=== PATIENT | male | born 1935 | race Caucasian/White ===

== ENCOUNTER 2017-05-14 01:25 | Inpatient (IN) | payer OTHER, MEDICAID ==
[~2017-05-14] VITALS: Ht 170.2 cm; Wt 64.0 kg
[~2017-05-14 01:25] MED LIST: ASPIRIN81 MG PO; METOPROLOL SUCC25 M1 PO; SIMVASTATIN20 M1 PO
--- NOTE | 2017-05-14 01:33 | NUR ---
EKG IN PROGRESS
--- NOTE | 2017-05-14 01:50 | NUR ---
PT IN THE ED WITH CO LEFT SIDED CP INTERMITTENT SINCE 1800 EXACERBATED BY WALKING. THE PAIN RADIATES TO THE BACK. PT SHIRT AND JACKET REMOVED, GOWN DONNED. DR LOLITA MENDES FOR MSE. PT ON FULL MONITORS. PT RATES PAIN 10.
[2017-05-14 02:18] LABS: PLATELET COUNT 185 x10^3mcL (130-400); RED CELL DISTRIBUTION WIDTH 13.2 % (11.5-14.5)
[2017-05-14 02:22] LABS: CALCIUM 8.5 mg/dL (8.5-10.1); CARBON DIOXIDE 29.3 mmol/L (21-32); CHLORIDE SERUM 103 mmol/L (98-107); GLUCOSE SERUM 102 mg/dL (74-106); POTASSIUM SERUM 4.1 mmol/L (3.5-5.1); SODIUM SERUM 139 mmol/L (136-145)
--- NOTE | 2017-05-14 02:22 | NUR ---
X-RAY AT BEDSIDE
[2017-05-14 02:29] LABS: ALBUMIN 3.4 g/dL (3.4-5.0); ALKALINE PHOSPHATASE 78 U/L (46-116); ALT/SGPT 20 U/L (16-63); AST/SGOT 18 U/L (15-37); BILIRUBIN TOTAL 0.44 mg/dL (0.20-1.00); TOTAL PROTEIN, SERUM 7.3 g/dL (6.4-8.2)
[2017-05-14 02:32] LABS: BASOPHIL % 0 % (0-2)
--- NOTE | 2017-05-14 02:40 | NUR ---
PT WEIGHED AND ACTUAL WEIGHT IS [address] LOLITA STEVENS.
[2017-05-14] MEDS ORDERED: CARVEDILOL3.125 M1 PO (03:56)
--- NOTE | 2017-05-14 03:57 | NUR ---
PT RESTING, AAOX4 SPEAKING IN CLEAR SENTENCES. PT REPORTS EXPERIENCING PAIN ONLY WHEN COUGHING. BREATHING EVEN AND UNLABORED. PT IN NO ACUTE DISTRESS. RESIDENT AT BEDSIDE
--- NOTE | 2017-05-14 04:07 | NUR ---
REPORT CALLED TO JOELLE LIMA, TO ASSUME CARE POST TRANSFER
--- NOTE | 2017-05-14 04:50 | NUR ---
RECEIVED PT FROM ER, PT ADMIT FOR CHEST PAIN, PT IS A/O X4, VERBAL RESPONSIVE, ABLE TO TELL WHAT HE NEEDS. LUNG SOUND CLEAR BILATERAL, PT IS ON 2L/MIN O2 VIA NC. DENY ANY RESPIRATORY DISTRESS, PT IS ON TELE 28, NSR, DENY ANY CHEST PAIN OR DISCOMFORT, BOWEL SOUND PRESENT ALL 4 QUADRATNS, NO DISTENTION, NO TENDER. PEDAL PULSE PRESENT BOTH FEET, NO EDEMA NOTED, IV AT LEFT FA, NO LEAKING, NO INFILTRATION. PT STATE HAS HX STROKE, BUT THERE IS NO RESIDUAL NOTED. BUT PT UNABLE TO OPEN BOTH HAND LAST 2 FINGER, PT START HEPARIN DRIP AT ER, 800 UNIT/HR, NEXT PTT AT 0945, ALL ADLS ASSIST, ALL NEED MET, CALL LIGHT IN REACH, WILL CONTINUE TO MONITOR.
[2017-05-14 04:53] LABS: CHOLESTEROL/HDL RATIO 3.9; MAGNESIUM 1.9 mg/dL (1.8-2.4); PHOSPHOROUS 2.8 mg/dL (2.5-4.9)
[2017-05-14 04:54] LABS: T3 TOTAL 0.87 ng/mL
[2017-05-14 04:59] LABS: FREE T4 0.95 ng/dL (0.76-1.46); FREE THYROXINE INDEX 2.1 ug/dL (1.4-4.5); T4(THYROXINE) 6.3 ug/dL (4.7-13.3)
[2017-05-14 05:02] VITALS: BP 159/71
[2017-05-14 05:27] VITALS: BP 159/71
--- NOTE | 2017-05-14 07:35 | NUR ---
RECEIVED AWAKE. ALERT AND ORIENTED. NO RESP. DISTRESS NOTED. NO C/O CHEST PAIN AT THIS TIME. IVF AND HEPARIN DRIP INFUSING PER ORDER AND SITE CLEAR. CALL LIGHT WITHIN REACH. WILL CONTINUE W/PLAN OF CARE.
[2017-05-14 07:52] LABS: microscopic required? YES; urine erythrocyte TRACE (NEGATIVE)
[2017-05-14 08:29] LABS: AMPHETAMINE QUAL UR POSITIVE (NEG <=1000)
[2017-05-14 08:48] VITALS: BP 123/49
--- NOTE | 2017-05-14 09:53 | NUR ---
AM ROUNDS DONE BY DR. GOODWIN AND MEDICAL TEAM. PLAN TO CONT. WITH CURRENT TX AND CONSULT CARDIOLOGY. PT AGREED WITH PLAN.
--- NOTE | 2017-05-14 10:47 | NUR ---
PTT 67.9, HEP DRIP ADJUSTED PER PROTOCOL AND WILL REORDER PTT FOR 1500. TROP. SLIGHTLY ELEVETED 0.148. DR. VILLAVICENCIO PAGED.
--- NOTE | 2017-05-14 11:57 | NUR ---
PT C/O CHEST PAIN 8/10 RADIATING TO LT JAW. MEDICATED WITH NTG SL. O2 2L ON. NRS AND NO CHANGES TO THE MONITOR.WILL CONT, TO MONITOR.
[2017-05-14 12:01] VITALS: BP 133/76
--- NOTE | 2017-05-14 12:13 | NUR ---
PT REPORTED CHEDT PAIN RELIEF FROM NTG SL X1 DOSE. NO SOB NOTED. VS 133/76,HR66 NSR. NO ACUTE RESP. DISTRESS NOTED. WILL CONTINUE TO MONITOR.
--- NOTE | 2017-05-14 16:14 | NUR ---
PT RESTING IN BED, NO DISTRESS NOTED. NO C/O PAIN AT THIS TIME.
--- NOTE | 2017-05-14 16:33 | NUR ---
PTT 53.5. NO CHANGES MADE TO HEPARIN DRIP PER PROTOCOL. NEXT PTT ORDERED FOR 2029. PT RESTING IN BED. NO ACTIVE BLEEDING NOTED. NO C/O PAIN
[2017-05-14 17:18] VITALS: BP 109/52
--- NOTE | 2017-05-14 18:22 | NUR ---
REMAINS IN NO DISTRESS. AWAKE ALERT AND ORIENTED. FAMILY AT BEDSIDE, NO C/O CHEST PAIN OR DISCOMFORT. PT C/O DRY COUGH, ROBITUSSIN GIVEN. IVF AND HEPARIN DRIP INFUSING WELL AND SITE CLEAR. CALL LIGHT WITHIN REACH. WILL BE ENDORSED TO INCOMING SHIFT.
--- NOTE | 2017-05-14 19:20 | NUR ---
RECEIVED PT FROM PREVIOUS SHIFT. PT A/OX4. DENIES PAIN. DENIES SOB ON 2LNC. IV PATENT AND INFUSING NS AND HEPARIN PER PROTOCOL AT 700UNITS/HR PER PROTOCOL. NEXT PTT AT 2029. CALL LIGHT WITHIN REACH, BED IN LOW POSITION. WILL CONTINUE TO MONITOR.
[2017-05-14 21:26] VITALS: BP 125/63
--- NOTE | 2017-05-15 01:52 | NUR ---
PT RESTNIG IN NO ACUTE DISTRESS. RR EVEN AND UNLABORED. IV PATENT. CALL LIGHT WITHIN REACH, BED IN LOW POSITION. WILL CONTINUE TO MONITOR.
[2017-05-15 05:57] VITALS: BP 122/60
[2017-05-15 06:05] LABS: BASOPHIL % 0.1 % (0-2); PLATELET COUNT 171 x10^3mcL (130-400); RED CELL DISTRIBUTION WIDTH 13.2 % (11.5-14.5)
[2017-05-15 06:25] LABS: CALCIUM 7.8 mg/dL (8.5-10.1); CARBON DIOXIDE 24.8 mmol/L (21-32); CHLORIDE SERUM 104 mmol/L (98-107); CREATININE SERUM 0.9 mg/dL (0.7-1.3); GLUCOSE SERUM 84 mg/dL (74-106); MAGNESIUM 1.8 mg/dL (1.8-2.4); PHOSPHOROUS 2.5 mg/dL (2.5-4.9); POTASSIUM SERUM 3.7 mmol/L (3.5-5.1); SODIUM SERUM 137 mmol/L (136-145)
--- NOTE | 2017-05-15 07:47 | NUR ---
RECEIVED SLEEPING BUT AROUSABLE. NO ACUTE DISTRESS. NO C/O PAIN OR DISCOMFORT. VS WNL. IVF AND HEPARIN DRIP INFUSING WELL, SITE CLEAR. CALL LIGHT WITHIN REACH. WILL CONTINUE W/PLAN OF CARE.
[2017-05-15 10:26] VITALS: BP 123/62
--- NOTE | 2017-05-15 11:08 | NUR ---
PT SEEN IN HIS ROOM. PT ABLE TO UNDERSTAND SOME CYMRAES. CARDIAC CATH VIDEO (DVD) PLAYED FOR PATIENT. PT WITH SOME QUESTIONS FOLLOWING VIDEO. DANETTE COLVIN FROM PRODUCT EXAMINER AT BEDSIDE TO PROVIDE TRANSLATION. ALL QUESTIONS ANSWERED AT THIS TIME. VERIFIED DR. MORRIS SPOKE WITH PT, PT CONSENTS TO PROCEDURE. CONSENT FOR PROCEDURE, MODERATE SEDATION, AND CONTRAST SIGNED BY PATIENT AT THIS TIME. PT ALSO PROVIDED WITH POST-CASE EDUCATION, FORM SIGNED AT THIS TIME. PT WITH ALL QUESTIONS ANSWERED. PT NOTIFIED THAT WE WILL RETURN AT 1330 TO PICK PT UP FOR CASE. PT ABLE TO VERBALIZE UNDERSTANDING.
[2017-05-15 11:14] VITALS: Ht 170.2 cm; Wt 64.0 kg
--- NOTE | 2017-05-15 12:11 | NUR ---
HEPARIN DRIP STOPPED PER ORDER. PT IN NO DISTRESS. FAMILY AT BEDSIDE. NO C/O CHEST PAIN AT THIS TIME.
[2017-05-15 13:14] VITALS: BP 131/64
--- NOTE | 2017-05-15 13:17 | NUR ---
ECHO COMPLETED.STRAWHAT BLOCKING OPERATOR HERE FOR PT.
--- NOTE | 2017-05-15 13:32 | NUR ---
LEFT TO SENIOR INSTRUMENTATION ENGINEER.
--- NOTE | 2017-05-15 15:18 | NUR ---
PT ARRIVED FROM CARDIAC CATH VIA GURNEY ACCOMPANIED BY 2 RNS. PT IS LYING IN BED, HOB FLAT. PT IS SLEEPING BUT EASILY AWOKEN. PT IS A&O X4, GEORGIAN SPEAKING. 2L OF O2 VIA NC. EXPIRATORY WHEEZES HEARD TO BILAT UPPER LOBES AND DIMINISHED TO BILAT BASES OF LOBES. CHEST RISE IS EQUAL AND SYMMETRICAL. BREATHING IS EVEN AND UNLABORED. ABD IS SOFT AND FLAT. ACTIVE BOWEL SOUNDS X4 QUADRANTS. SKIN IS WARM AND DRY. NO SKIN TEARS NOTED. NO EDEMA NOTED. SURGICAL SITE TO RIGHT GROIN CLEAN AND WNL, NO BLEEDING NOTED, DRESSING CDI. MODERATE PULSES TO BLE. INTEGRILIN AT 2 MCG/KG/MIN. BP 90/55, MAP 67, HR 52, RR 22, 02 94%, TEMP 97.4. PT DENIES PAIN AT THIS TIME. WILL CONTINUE TO MONITOR FOR ANY ACUTE CHANGES.
[2017-05-15 16:00] VITALS: BP 90/55
--- NOTE | 2017-05-15 16:00 | NUR ---
NIBP 84/48, 59. DR. MORRIS AT BEDSIDE TO ASSESS PATIENT. ORDERS GIVEN TO BOLUS PATIENT WITH 250 ML NS AND TO MONITOR MAP. IF MAP REMAINS BELOW 65, ORDER GIVEN TO START DOPAMINE DRIP AT 5 MCG/KG/MIN. RT AT BEDSIDE TO PERFORM EKG. WILL FOLLOW AND CONTINUE TO MONITOR.
--- NOTE | 2017-05-15 17:18 | NUR ---
RECIEVED CALL FROM DR. MORRIS. NIBP STABLE WITH MAP >65. INTEGRILIN DRIP TO REMAIN INFUSING UNTIL MIDNIGHT TONIGHT. WILL FOLLOW AND CONTINUE TO MONITOR.
--- NOTE | 2017-05-15 19:22 | NUR ---
REPORT GIVEN TO GRECIA LIMA. QUESTIONS AND CONCERNS ADDRESSED. ENDORSED PT CARE.
[2017-05-15 19:48] VITALS: BP 117/60
--- NOTE | 2017-05-15 19:48 | NUR ---
RECEIVED PATIENT FROM AM RNLUIS MIGUEL. PATIENT QUIETLY RESTING IN BED. ALL SAFEY MEASURES IN PLACE. S/P CARDIAC STENT PLACE. DRESSING TO RIGHT UPPER THIGH DRESSING CDI WITH CLOT NOTED. CURRENTLY ON 2 LITERS NASAL CANNULA, BREATHING EVEN AND UNLABORED. NO S/SX OF DISTRESS NOTED. PATIENT A/OX3 ABLE TO VERBALIZE NEEDS. URINAL PROVIDED. PATIENT DENIES ANY PAIN AT THIS TIME. SON BY BEDSIDE.
--- NOTE | 2017-05-15 23:04 | NUR ---
PATIENT CURRENTLY AWAKE EATING. SON BY BEDSIDE. PATIENT A/OX4 ABLE TO VERBALIZE NEEDS. DENIES ANY CHEST PAIN OR SOB AT THIS TIME.
[2017-05-15 23:18] VITALS: BP 139/78
[2017-05-16 03:45] VITALS: BP 128/72
[2017-05-16 05:18] LABS: BASOPHIL % 0.3 % (0-2); PLATELET COUNT 179 x10^3mcL (130-400); RED CELL DISTRIBUTION WIDTH 12.9 % (11.5-14.5)
[2017-05-16 05:40] LABS: CALCIUM 8.1 mg/dL (8.5-10.1); CARBON DIOXIDE 24.8 mmol/L (21-32); CHLORIDE SERUM 103 mmol/L (98-107); GLUCOSE SERUM 86 mg/dL (74-106); PHOSPHOROUS 2.9 mg/dL (2.5-4.9); POTASSIUM SERUM 3.7 mmol/L (3.5-5.1); SODIUM SERUM 135 mmol/L (136-145)
--- NOTE | 2017-05-16 06:25 | NUR ---
PATIENT QUIETLY RESTING IN BED. A/OX4 ABLE TO VERBALIZE NEEDS. UPDATED DR. ROWLEY REGARDING PATIENT'S CURRENT CONDITION. PATIENT CONTINUES TO DENY ANY CHEST PAIN; ON SOB. NON-PRODUCTIVE COUGH NOTED WITH SLIGHT RHONCHI AND WHEEZING HEARD ON ASCULATION. DRESSING TO RIGHT GROIN INTACT AND DRY. NO REDNESS OR INFECTION NOTED. WILL ENDORSE CONTINUITY OF CARE TO AM RN.
--- NOTE | 2017-05-16 08:20 | NUR ---
PATIENT'S FAMILY AND FRIENDS AT BEDSIDE TO VISIT WITH PATIENT. WHEN PATIENT IS TO BE DISCHARGED, PLEASE CALL AMANDA NOLAND (FRIEND) AT HE WILL TAKE HIM HOME. WILL ENDORSE TO PRIMARY RN AND PLACE NOTE IN CHART.
--- NOTE | 2017-05-16 10:53 | NUR ---
AT 0730 - RECEIVED PATIENT FROM NIGHT NURSE. AWAKE, ALERT AND APPEARS ORIENTED. NO C/O PAIN. MONITOR SHOWING SINUS RHYTHM; RATE 50-65. NO ECTOPIES NOTED. PATIENT IS FIRST DAY POST CARDIAC CATH AND STENT PLACEMENT. R GROIN CARDIAC CATH SITE IS COVERED WITH OP-SITE WITH SMALL AMOUNT OF BRIGHT BLOOD CAPTURED UNDER DRESSING. IV INFUSING NS AT 60ML/HR. VOIDING IN URINAL. AT 0800 - SAT UP IN BED FOR BREAKFAST. AT 0930 - SEEN BY DR GOODWIN DURING MORNING ROUNDS. MEDICAL TEAM DOCTORS, JOSÉ MIGUEL JESUS AND MYSELF PRIMARY NURSE ALSO PRESENT. DR BOTELLO SPOKE WITH PATIENT IN OCCITAN. PLAN FOR TRANSFER TO FLOOR TODAY AND POSSIBLE DC HOME TOMORROW. PAITENT VERBALIZED AGREEMENT. PATIENT HAS EATEN BREAKFAST.
[2017-05-16 12:20] VITALS: BP 126/60
--- NOTE | 2017-05-16 12:34 | NUR ---
VSS AND WNL. NOW SITTING UP INB ED EATING LUNCH.
--- NOTE | 2017-05-16 14:01 | NUR ---
AT 1300 - OPSITE DRESSING TO R GROIN CHANGED. NO FRESH BLEEDING. PATIENT GIVEN PARTIAL BED BATH AND MADE COMFORTABLE. AWAITING BED PLACEMENT FOR TRANFER TO FLOOR.
[2017-05-16 16:11] VITALS: BP 118/65
--- NOTE | 2017-05-16 16:32 | NUR ---
AT 1510 - SEEN BY DR MORRIS. PATIENT OKAY TO TRANSFER TO FLOOR. CONTINUE PLAVIX AND ASPIRIN. AT 1630 - PATIENT TO TRANFER TO 255 B.
--- NOTE | 2017-05-16 16:46 | NUR ---
REPORT GIVEN TO CLARENCE SÁNCHEZ. WILL TRANSFER PATIENT TO FLOOR.
--- NOTE | 2017-05-16 16:55 | NUR ---
PT ARRIVED ON FLOOR WITH CLARENCE MARTEL PRESENT AT BEDSIDE. RESPIRATIONS EQUAL AND UNLABORED. DENIES PAIN AT THIS TIME. IV PATENT AND INFUSING. OP SITE C/D/I, NO NEW DRAINAGE AT THIS TIME. BED IN LOW POSITION. CALL LIGHT IN REACH. FAMILY PRESENT AT BEDSIDE. WILL ENDORSE TO DATABASE MANAGER RN.
--- NOTE | 2017-05-16 19:24 | NUR ---
PT IS AAOX4, BELARUSIAN SPEAKING ONLY. SON IS AT BEDSIDE. PT RECENTLY HAD A STENT PLACED, ACCESS THROUGH THE RIGHT GROIN. THE SITE HAS A TAGADERM PLACED AND HAS VERY MINIMAL AMOUNT OF DRIED BLOOD. ADVISED PT TO KEEP THE LEG STRAIGHT AND TO NOT TRY TO GET UP. PT IS ON RA. THE CALL LIGHT IS WITHIN REACH, WILL CONTINUE TO MONITOR.
[2017-05-16 21:23] VITALS: BP 148/67
--- NOTE | 2017-05-17 | NUR ---
PT SLEEPING COMFORTABLY. EVEN UNLABORED BREATHING. SONG AT BEDSIDE. CALL LIGHT WITHIN REACH. WILL CONTINUE TO MONITOR.
[2017-05-17 05:27] VITALS: BP 127/67
--- NOTE | 2017-05-17 06:06 | NUR ---
THE PT IS SLEEPING COMFORTABLY, SON AT BEDSIDE. ALL NEEDS HAVE BEEN MET THROUGHOUT THE NIGHT. CALL LIGHT WITHIN REACH. WILL CONTINUE TO MONITOR.
[2017-05-17 07:28] LABS: BASOPHIL % 0.2 % (0-2); PLATELET COUNT 157 x10^3mcL (130-400); RED CELL DISTRIBUTION WIDTH 12.7 % (11.5-14.5)
[2017-05-17 07:49] LABS: CALCIUM 8.1 mg/dL (8.5-10.1); CHLORIDE SERUM 105 mmol/L (98-107); CREATININE SERUM 0.9 mg/dL (0.7-1.3); GLUCOSE SERUM 84 mg/dL (74-106); SODIUM SERUM 138 mmol/L (136-145)
--- NOTE | 2017-05-17 07:50 | NUR ---
RC'D PT RESTING IN BED WITH NO APPARENT SIGNS OF DISTRESS. FAMILY PRESENT AT BEDSIDE. PT A/A/O/X4, SPEECH CLEAR AND APPROPRIATE. ON TELE 8 WITH NSR. DENIES CHEST PAIN/PRESSURE/DISCOMFORT. PALP PULSES, NO EDEMA NOTED. ON PLAVIX. RESPIRATIONS EQUAL AND UNLABORED. LUNGS CTA. ON RA, DENIES SOB. ABDOMEN SOFT AND NONTENDER. ACTIVE BS. DENIES N/V AT THIS TIME. VOIDS FREELY, DENIES BURNING. GENERALIZED AND RIGHT SIDED WEAKNESS. AMBULATORY. SKIN W/D. OP-SITE RIGHT GROIN DRESSING IN PLACE CDI WITH NO NEW DRAINAGE. DENIES PAIN AT THIS TIME. IV PATENT AND INFUSING. BED IN LOW POSITION. CALL LIGHT IN REACH. EDUCATED ON USING CALL LIGHT WHEN NEEDING ASSISTANCE. WILL CONTINUE TO MONITOR.
[2017-05-17 09:00] VITALS: BP 133/71
--- NOTE | 2017-05-17 11:50 | NUR ---
PT RESTING IN BED WITH NO APPARENT SIGNS OF DISTRESS. RESPIRATIONS EQUAL AND UNLABORED. DENIES PAIN AT THIS TIME. BED IN LOW POSITION. FAMILY PRESENT AT BEDSIDE. CALL LIGHT IN REACH. WILL CONTINUE TO MONITOR.
[2017-05-17 13:12] VITALS: BP 144/70
[2017-05-17] MEDS ORDERED: ATORVASTATIN CA40 M1 PO (13:14)
[2017-05-17] MEDS ORDERED: CLOPIDOGREL75 M1 PO (13:14)
[2017-05-17] MEDS ORDERED: COUGH100 MG/5 M PO (13:16)
[2017-05-17] MEDS ORDERED: ZES5 PO (13:22)
[2017-05-17] MEDS ORDERED: ASPIRIN81 MG PO (13:24)
--- NOTE | 2017-05-17 15:30 | NUR ---
PT REPORTED HAVING BOWEL MOVEMENT AND PASSING GAS. NOTIFIED AND MADE AWARE. PT RESTING IN BED WITH NO APPARENT SIGNS OF DISTRESS. DENIES PAIN AT THIS TIME. CALL LIGHT IN REACH. WILL CONTINUE TO MONITOR.
[2017-05-17 16:11] VITALS: BP 144/70
--- NOTE | 2017-05-17 19:02 | NUR ---
PT PROVIDED WITH DC HOME INSTRUCTIONS. GIVEN MEDICATION EDUCATION. MADE AWARE PRESCRIPTIONS HAVE BEEN SENT TO PT'S SELECTED PHARMACY. MADE AWARE OF FOLLOW UP APPT WITH PCP. INSTRUCTED ON IMPORTANCE OF FOLLOWING MEDICATIONS PRESCRIBED. MADE AWARE OF WORSENING SYMPTOMS AND SIGNS TO RETURN TO ED OR REPORT TO PCP. PT VERBALIZED UNDERSTANDING OF INSTRUCTIONS. TELE AND IV DC'D, CATHETER INTACT. PT TRANSPORTED VIA WC TO THE LOBBY WITH ALL PERSONAL BELONGINGS IN HAND ACCOMPANIED BY PEDIATRIC NP AND FAMILY FREE OF ANY APPARENT DISTRESS.
== END 2017-05-17 18:58 | disposition home or self-care (01) | DRG 246 ==
LOC: ED 01:25 → DU 03:30 → IC 03:30 → DU 05:25 → IC 05-15 15:15 → DU 05-16 17:18
PROVIDERS: Emergency Medicine; Internal Medicine Interventional Cardiology; ADMIT Family Medicine
PROC: 027034Z Dilation of Coronary Artery, One Artery with Drug-eluting Intraluminal Device, Percutaneous Approach (ICD-10-PCS; 2017-05-15)
PROC: B211YZZ Fluoroscopy of Multiple Coronary Arteries using Other Contrast (ICD-10-PCS; 2017-05-15)
PROC: B215YZZ Fluoroscopy of Left Heart using Other Contrast (ICD-10-PCS; 2017-05-15)
PROC: 4A023N7 Measurement of Cardiac Sampling and Pressure, Left Heart, Percutaneous Approach (ICD-10-PCS; principal; 2017-05-15 14:00)
DX: I25.10 Atherosclerotic heart disease of native coronary artery without angina pectoris (principal); I50.43 Acute on chronic combined systolic (congestive) and diastolic (congestive) heart failure; N17.0 Acute kidney failure with tubular necrosis; M94.0 Chondrocostal junction syndrome [Tietze]; I11.0 Hypertensive heart disease with heart failure; I16.0 Hypertensive urgency; R31.9 Hematuria, unspecified; N20.0 Calculus of kidney; F15.10 Other stimulant abuse, uncomplicated; R80.9 Proteinuria, unspecified; E78.5 Hyperlipidemia, unspecified; E02 Subclinical iodine-deficiency hypothyroidism; I25.2 Old myocardial infarction; Z79.82 Long term (current) use of aspirin; Z68.25 Body mass index [BMI] 25.0-25.9, adult; Z95.5 Presence of coronary angioplasty implant and graft; Z86.73 Personal history of transient ischemic attack (TIA), and cerebral infarction without residual deficits
CPT/HCPCS: CLHCL; 83880; 84439; C1760; C1769; C1876; C1887; C1894; J0360; J1327; J1644; J2001; J2250; J3010; J7030; J7040; Q0092; Q9967

== ENCOUNTER 2017-05-22 15:40 | Emergency (ER) | payer OTHER, MEDICAID ==
[~2017-05-22] VITALS: Ht 170.2 cm; Wt 64.9 kg
[~2017-05-22 15:40] MED LIST changes: +ATORVASTATIN CA40 M1 PO; +CARVEDILOL3.125 M1 PO; +CLOPIDOGREL75 M1 PO; +COUGH100 MG/5 M PO; +ZES5 PO
[2017-05-22 16:31] VITALS: Ht 170.2 cm; Wt 64.9 kg
[2017-05-22 19:15] VITALS: BP 121/66
== END 2017-05-22 19:15 | disposition home or self-care (01) ==
LOC: ED 15:40
DX: M79.1 Myalgia (principal); I10 Essential (primary) hypertension; Z88.0 Allergy status to penicillin

== ENCOUNTER 2019-06-28 22:47 | Inpatient (IN) | payer OTHER, MEDICAID ==
[~2019-06-28] VITALS: Ht 170.2 cm; Wt 61.4 kg
[2019-06-28 23:19] LABS: BASOPHIL % 0.4 % (0-2); PLATELET COUNT 180 x10^3mcL (130-400); RED CELL DISTRIBUTION WIDTH 12.9 % (11.5-14.5)
[2019-06-28 23:28] LABS: CALCIUM 8.6 mg/dL (8.5-10.1); CARBON DIOXIDE 28.2 mmol/L (21-32); CHLORIDE SERUM 104 mmol/L (98-107); GLUCOSE SERUM 86 mg/dL (74-106); SODIUM SERUM 140 mmol/L (136-145)
[2019-06-28 23:35] LABS: ALBUMIN 3.7 g/dL (3.4-5.0); ALKALINE PHOSPHATASE 82 U/L (46-116); ALT/SGPT 34 U/L (16-63); AST/SGOT 23 U/L (15-37); BILIRUBIN TOTAL 0.3 mg/dL (0.20-1.00); TOTAL PROTEIN, SERUM 7.7 g/dL (6.4-8.2)
[2019-06-29 00:48] VITALS: BP 168/77
[2019-06-29 00:53] VITALS: Ht 170.2 cm; Wt 61.4 kg
[2019-06-29 01:29] LABS: CHOLESTEROL/HDL RATIO 2.8; PHOSPHOROUS 2.9 mg/dL (2.5-4.9)
[2019-06-29 01:45] LABS: FREE T4 0.89 ng/dL (0.76-1.46); FREE THYROXINE INDEX 2.4 ug/dL (1.4-4.5)
[2019-06-29 02:36] LABS: T3 TOTAL 0.72 ng/mL
[2019-06-29 06:21] VITALS: BP 128/68
[2019-06-29 06:36] LABS: BASOPHIL % 0.3 % (0-2); PLATELET COUNT 158 x10^3mcL (130-400); RED CELL DISTRIBUTION WIDTH 12.5 % (11.5-14.5)
[2019-06-29 07:04] LABS: POTASSIUM SERUM 3.6 mmol/L (3.5-5.1); SODIUM SERUM 141 mmol/L (136-145)
[2019-06-29 07:05] LABS: CARBON DIOXIDE 26.4 mmol/L (21-32); CHLORIDE SERUM 107 mmol/L (98-107); CREATININE SERUM 0.9 mg/dL (0.7-1.3); GLUCOSE SERUM 133 mg/dL (74-106); MAGNESIUM 1.9 mg/dL (1.8-2.4); PHOSPHOROUS 2.5 mg/dL (2.5-4.9)
[2019-06-29 08:05] VITALS: BP 151/69
[2019-06-29 13:03] VITALS: BP 150/76
[2019-06-29 17:27] VITALS: BP 129/61
[2019-06-29 20:30] VITALS: BP 138/70
[2019-06-29 20:40] LABS: microscopic required? NO
[2019-06-29 20:48] LABS: UA SPECIFIC GRAVITY 1.015 (1.005-1.035); urine erythrocyte NEGATIVE (NEGATIVE)
[2019-06-30 05:48] VITALS: BP 130/71
[2019-06-30 06:33] LABS: BASOPHIL % 0.2 % (0-2); PLATELET COUNT 178 x10^3mcL (130-400); RED CELL DISTRIBUTION WIDTH 12.8 % (11.5-14.5)
[2019-06-30 06:55] LABS: CALCIUM 8.3 mg/dL (8.5-10.1); CARBON DIOXIDE 24.6 mmol/L (21-32); CHLORIDE SERUM 106 mmol/L (98-107); GLUCOSE SERUM 81 mg/dL (74-106); MAGNESIUM 1.9 mg/dL (1.8-2.4); PHOSPHOROUS 3.2 mg/dL (2.5-4.9); POTASSIUM SERUM 4.5 mmol/L (3.5-5.1); SODIUM SERUM 139 mmol/L (136-145)
[2019-06-30 08:43] VITALS: BP 165/77
[2019-06-30 16:47] VITALS: BP 152/51
[2019-06-30 20:56] VITALS: BP 136/62
[2019-07-01 06:19] VITALS: BP 144/79
[2019-07-01 06:41] LABS: BASOPHIL % 0.4 % (0-2); PLATELET COUNT 174 x10^3mcL (130-400); RED CELL DISTRIBUTION WIDTH 12.8 % (11.5-14.5)
[2019-07-01 07:15] LABS: CARBON DIOXIDE 24.3 mmol/L (21-32); CHLORIDE SERUM 107 mmol/L (98-107); GLUCOSE SERUM 83 mg/dL (74-106); POTASSIUM SERUM 4.2 mmol/L (3.5-5.1); SODIUM SERUM 141 mmol/L (136-145)
[2019-07-01 08:22] VITALS: BP 170/72
[2019-07-01] MEDS ORDERED: ASPIRIN CHILDRE81 MG PO (10:37)
[2019-07-01] MEDS ORDERED: ZES5 PO (10:37)
[2019-07-01] MEDS ORDERED: COR6 PO (10:38)
[2019-07-01] MEDS ORDERED: ATORVASTATIN CA40 M1 PO (10:38)
[2019-07-01] MEDS ORDERED: CLOPIDOGREL75 M1 PO (10:38)
[2019-07-01] MEDS ORDERED: BACO TOP (10:39)
[2019-07-01] MEDS ORDERED: APLICARE ANTIS118 M3 TOP (10:41)
[2019-07-01 12:05] VITALS: BP 162/67
[2019-07-01 12:58] VITALS: BP 162/67
== END 2019-07-01 15:05 | disposition home or self-care (01) | DRG 303 ==
LOC: ED 22:47 → DU 23:49
PROVIDERS: Emergency Medicine; Internal Medicine; ADMIT Family Medicine
DX: I25.110 Atherosclerotic heart disease of native coronary artery with unstable angina pectoris (principal); I69.351 Hemiplegia and hemiparesis following cerebral infarction affecting right dominant side; I10 Essential (primary) hypertension; E78.5 Hyperlipidemia, unspecified; I25.2 Old myocardial infarction; Z79.82 Long term (current) use of aspirin; Z68.21 Body mass index [BMI] 21.0-21.9, adult; Z87.891 Personal history of nicotine dependence; Z95.5 Presence of coronary angioplasty implant and graft
CPT/HCPCS: 83880; 84439; 85378; A9500; G0378; J2785

== ENCOUNTER 2019-11-05 16:49 | Observation (INO) | payer OTHER, MEDICAID, SELFPAY ==
[~2019-11-05] VITALS: Ht 165.1 cm; Wt 61.4 kg
[~2019-11-05 16:49] MED LIST changes: +APLICARE ANTIS118 M3 TOP; +ASPIRIN CHILDRE81 MG PO; +BACO TOP; +COR6 PO
[2019-11-05 16:51] VITALS: Ht 165.1 cm; Wt 61.4 kg
[2019-11-05 17:46] LABS: BASOPHIL % 0.3 % (0-2); PLATELET COUNT 132 x10^3mcL (130-400); RED CELL DISTRIBUTION WIDTH 13.4 % (11.5-14.5)
[2019-11-05 17:55] LABS: CARBON DIOXIDE 26.8 mmol/L (21-32); CHLORIDE SERUM 101 mmol/L (98-107); CREATININE SERUM 1.2 mg/dL (0.7-1.3); GLUCOSE SERUM 127 mg/dL (74-106); POTASSIUM SERUM 3.5 mmol/L (3.5-5.1); SODIUM SERUM 135 mmol/L (136-145)
[2019-11-05 18:00] LABS: ALBUMIN 3.3 g/dL (3.4-5.0); ALKALINE PHOSPHATASE 86 U/L (46-116); ALT/SGPT 28 U/L (16-63); AST/SGOT 19 U/L (15-37); LIPASE 173 IU/L (73-393); TOTAL PROTEIN, SERUM 7.1 g/dL (6.4-8.2)
[2019-11-05 20:35] LABS: UA SPECIFIC GRAVITY >=1.030 (1.005-1.035); microscopic required? YES; urine erythrocyte NEGATIVE (NEGATIVE)
[2019-11-05 23:54] VITALS: BP 194/80
[2019-11-06 03:17] VITALS: BP 119/55
[2019-11-06 06:30] LABS: BASOPHIL % 0.3 % (0-2)
[2019-11-06 06:36] VITALS: BP 133/67
[2019-11-06 07:13] LABS: ALKALINE PHOSPHATASE 79 U/L (46-116); ALT/SGPT 23 U/L (16-63); AST/SGOT 22 U/L (15-37); BILIRUBIN TOTAL 0.4 mg/dL (0.20-1.00); CALCIUM 7.6 mg/dL (8.5-10.1); CARBON DIOXIDE 27.8 mmol/L (21-32); CHLORIDE SERUM 102 mmol/L (98-107); GLUCOSE SERUM 78 mg/dL (74-106); MAGNESIUM 1.9 mg/dL (1.8-2.4); SODIUM SERUM 136 mmol/L (136-145); TOTAL PROTEIN, SERUM 6.5 g/dL (6.4-8.2)
[2019-11-06 07:15] LABS: ALBUMIN 2.9 g/dL (3.4-5.0)
[2019-11-06 07:21] LABS: PLATELET COUNT 114 x10^3mcL (130-400)
[2019-11-06 09:02] VITALS: BP 146/108
[2019-11-06 16:50] VITALS: BP 172/82
[2019-11-06 20:10] VITALS: BP 167/90
[2019-11-07 05:40] VITALS: BP 145/76
[2019-11-07 06:40] LABS: BASOPHIL % 0.1 % (0-2); RED CELL DISTRIBUTION WIDTH 12.8 % (11.5-14.5)
[2019-11-07 06:56] LABS: PLATELET COUNT 119 x10^3mcL (130-400)
[2019-11-07 06:59] LABS: ALBUMIN 3.2 g/dL (3.4-5.0); ALKALINE PHOSPHATASE 82 U/L (46-116); ALT/SGPT 24 U/L (16-63); AST/SGOT 22 U/L (15-37); BILIRUBIN TOTAL 0.63 mg/dL (0.20-1.00); CARBON DIOXIDE 25.4 mmol/L (21-32); CHLORIDE SERUM 100 mmol/L (98-107); CREATININE SERUM 1.2 mg/dL (0.7-1.3); GLUCOSE SERUM 118 mg/dL (74-106); POTASSIUM SERUM 3.6 mmol/L (3.5-5.1); SODIUM SERUM 134 mmol/L (136-145)
[2019-11-07 09:02] VITALS: BP 111/64
[2019-11-07 15:03] VITALS: BP 111/64
== END 2019-11-07 15:45 | disposition home health service (06) ==
LOC: ED 16:49 → MU 20:05 → EDBEDREQ 20:06 → EDBEDREQSVC 20:36 → MU 23:30
PROVIDERS: Internal Medicine Pulmonary Disease; Student in an Organized Health Care Education/Training Program; ADMIT Internal Medicine Pulmonary Disease; ATTEND Internal Medicine Pulmonary Disease
DX: U07.1 COVID-19 (principal); I10 Essential (primary) hypertension; E78.5 Hyperlipidemia, unspecified; I25.10 Atherosclerotic heart disease of native coronary artery without angina pectoris
CPT/HCPCS: 83880; 85378; 97112-GP; G0378; J0456; J0610; J0696; J0744; J1956; J2270; J2405; J3490; J7040; J7050; J7060; Q0092; U0003-CS

== ENCOUNTER 2019-11-09 16:37 | Observation (INO) | payer OTHER, MEDICAID, SELFPAY ==
[~2019-11-09] VITALS: Ht 165.1 cm; Wt 61.2 kg
[2019-11-09 16:58] VITALS: Ht 165.1 cm; Wt 61.2 kg
[2019-11-09 18:07] LABS: BASOPHIL % 0.1 % (0-2); RED CELL DISTRIBUTION WIDTH 13.1 % (11.5-14.5)
[2019-11-09 18:11] LABS: PLATELET COUNT 127 x10^3mcL (130-400)
[2019-11-09 18:29] LABS: CALCIUM 8.1 mg/dL (8.5-10.1); CARBON DIOXIDE 29.3 mmol/L (21-32); CHLORIDE SERUM 99 mmol/L (98-107); CREATININE SERUM 1.3 mg/dL (0.7-1.3); GLUCOSE SERUM 101 mg/dL (74-106); POTASSIUM SERUM 3.7 mmol/L (3.5-5.1); SODIUM SERUM 134 mmol/L (136-145)
[2019-11-09 18:33] LABS: ALKALINE PHOSPHATASE 68 U/L (46-116); ALT/SGPT 35 U/L (16-63); AMYLASE 57 U/L (25-115); AST/SGOT 51 U/L (15-37); BILIRUBIN TOTAL 0.54 mg/dL (0.20-1.00); LIPASE 226 IU/L (73-393); TOTAL PROTEIN, SERUM 7.1 g/dL (6.4-8.2)
[2019-11-09 18:34] LABS: ALBUMIN 3.2 g/dL (3.4-5.0)
[2019-11-09 22:01] VITALS: BP 109/51
[2019-11-09 23:43] VITALS: BP 109/51
[2019-11-10 05:12] VITALS: BP 113/54
[2019-11-10 08:45] VITALS: BP 147/102
[2019-11-10 13:31] VITALS: BP 131/69
[2019-11-10 17:46] VITALS: BP 126/62
[2019-11-10 20:25] VITALS: BP 122/63
[2019-11-10 20:47] LABS: RED CELL DISTRIBUTION WIDTH 12.8 % (11.5-14.5)
[2019-11-10 20:49] LABS: BASOPHIL % 0 % (0-2); PLATELET COUNT 126 x10^3mcL (130-400)
[2019-11-10 21:00] LABS: CALCIUM 7.8 mg/dL (8.5-10.1); CARBON DIOXIDE 27.2 mmol/L (21-32); CHLORIDE SERUM 99 mmol/L (98-107); CREATININE SERUM 1.3 mg/dL (0.7-1.3); GLUCOSE SERUM 231 mg/dL (74-106); POTASSIUM SERUM 3.6 mmol/L (3.5-5.1); SODIUM SERUM 133 mmol/L (136-145)
[2019-11-11 05:17] VITALS: BP 123/57
[2019-11-11 08:41] VITALS: BP 125/56
[2019-11-11 09:46] VITALS: BP 125/56
== END 2019-11-11 12:11 | disposition home or self-care (01) ==
LOC: ED 16:37 → MU 19:15 → DU 19:15 → MU 20:56 → DU 22:04
PROVIDERS: Emergency Medicine; ADMIT Internal Medicine Pulmonary Disease; ATTEND Internal Medicine Pulmonary Disease
DX: U07.1 COVID-19 (principal); I10 Essential (primary) hypertension; E78.5 Hyperlipidemia, unspecified; I25.10 Atherosclerotic heart disease of native coronary artery without angina pectoris
CPT/HCPCS: 83880; 85378; C9113; G0378; J0456; J0696; J1100; J3490; J3535; J7050; J7060; J8540; Q0092; U0003-CS